=== PATIENT | female | born 1945 | race Caucasian/White ===

== ENCOUNTER 2016-07-05 14:18 | Emergency (ER) | payer BC, OTHER ==
[~2016-07-05] VITALS: Ht 157.5 cm; Wt 90.7 kg
[~2016-07-05 14:18] MED LIST: ASPIRIN325 PO; CIPRO500 MG; CIPRO500 MG PO; DIOVAN40 MG PO; FLAGYL500 MG; FLAGYL500 MG PO; LORTAB 5-325 M1 EACH PO; LOSARTAN-HCTZ1 EAC1 PO; MIRALAX255 GM PO; SINGULAIR 10 MG10 M1 PO; SYMBICORT160 MCG/4. INH; TYLENOL325 MG PO; VENTOLIN HFA 1818 GM INH
[2016-07-05 15:09] LABS: HEMATOCRIT 37.3 % (37.0-47.0); HEMOGLOBIN 12.9 gm/dL (12.0-15.0); MCH 32.4 pg (26.0-34.0); MCHC 34.7 g/dL (28.0-37.0); MCV 93.5 fL (80.0-100.0); RBC 3.99 mil/uL (4.20-5.00); RDW 12.8 % (10.5-14.5); WBC 15.4 thou/uL (4.0-11.0)
[2016-07-05 15:12] LABS: URINE BILIRUBIN NEGATIVE (Negative); URINE BLOOD 1+ (Negative); URINE COLOR YELLOW; URINE GLUCOSE-RANDOM* NEGATIVE (Negative); URINE KETONES NEGATIVE (Negative); URINE NITRITE NEGATIVE (Negative); URINE PROTEIN (DIPSTICK) NEGATIVE (Negative); URINE UROBILINOGEN 0.2 E.U./dl (0.2-1.0)
[2016-07-05 15:13] LABS: CALCIUM 10.2 mg/dL (8.5-10.1); CREATININE 0.8 mg/dL (0.6-1.0); POTASSIUM 3.7 mmol/L (3.5-5.1)
[2016-07-05 15:21] LABS: BACTERIA 1-9 Few /HPF (None Seen); CASTS None Seen /LPF (None Seen); CRYSTALS None Seen /LPF (None Seen); SQUAMOUS 4-10 Moderate /LPF (0-3); URINE RBC 3-10 Few /HPF (0-2); URINE WBC 0-5 Rare /HPF (0-5)
[2016-07-05] MEDS ORDERED: NORCO 5-325 TA1 EACH PO (16:05)
[2016-07-05] MEDS ORDERED: FLAGYL500 MG PO (16:08)
[2016-07-05] MEDS ORDERED: CIPRO500 MG PO (16:08)
[2016-07-05 17:47] VITALS: BP 150/86
== END 2016-07-05 17:48 | disposition home or self-care (01) ==
LOC: ER 14:18
PROVIDERS: Physician Assistant
DX: K57.92 Diverticulitis of intestine, part unspecified, without perforation or abscess without bleeding (principal); D72.829 Elevated white blood cell count, unspecified; J45.909 Unspecified asthma, uncomplicated; I10 Essential (primary) hypertension; Z88.8 Allergy status to other drugs, medicaments and biological substances

== ENCOUNTER 2018-03-24 16:22 | Emergency (ER) | payer OTHER ==
[~2018-03-24] VITALS: Ht 162.6 cm; Wt 87.1 kg
[~2018-03-24 16:22] MED LIST changes: +NORCO 5-325 TA1 EACH PO
[2018-03-24] MEDS ORDERED: DULERA 200 MCG/13 GM INH (16:29)
[2018-03-24] MEDS ORDERED: NORCO 5-325 TA1 EACH PO (18:40)
[2018-03-24 19:04] VITALS: BP 148/71
== END 2018-03-24 19:06 | disposition home or self-care (01) ==
LOC: ER 16:22
DX: S76.012A Strain of muscle, fascia and tendon of left hip, initial encounter (principal); J45.909 Unspecified asthma, uncomplicated; I10 Essential (primary) hypertension; Z88.8 Allergy status to other drugs, medicaments and biological substances; X50.1XXA Overexertion from prolonged static or awkward postures, initial encounter; Y92.89 Other specified places as the place of occurrence of the external cause; Y93.01 Activity, walking, marching and hiking; Y99.8 Other external cause status

== ENCOUNTER → 2018-10-25 | Outpatient (CLI) | payer OTHER ==
[~2018-10-25] MED LIST changes: +DULERA 200 MCG/13 GM INH
== END ==
LOC: RAD 07:02
DX: J45.40 Moderate persistent asthma, uncomplicated (principal); J98.4 Other disorders of lung